=== PATIENT | female | born 1975 | race Caucasian/White ===

== ENCOUNTER 2017-06-15 17:50 | Emergency (ER) | payer MEDICAID ==
[2017-06-15] MEDS ORDERED: Sodium Chloride 0.9% 1,000 ML IV SCH (18:15)
[2017-06-15] MEDS ORDERED: Ketorolac 30 MG/ML SDV IVPUSH ONE (18:16)
[2017-06-15] MEDS ORDERED: diphenhydrAMINE 50 MG/ML SDV IVPUSH ONE (18:16)
[2017-06-15] MEDS ORDERED: Metoclopramide 10 MG/2 ML SDV IVPUSH ONE (18:16)
[2017-06-15 19:39] VITALS: BP 166/91
--- NOTE | 2017-06-17 16:37 | ER ---
DATE SEEN: 06/15/2017 TIME SEEN: The patient was seen at 1815 hours and dismissed at 1920 hours. HISTORY OF PRESENT ILLNESS: This 41-year-old 2, para 2, woman comes in with history of onset of 10/10 headache, onset this morning when she was in bed, associated with mild photophobia without scintillating scotoma or without fortification syndrome - lines in front of her eyes or phonophobia. She has mild photophobia. She has no paresis or weakness. Has some nausea. Has not vomited. Denies fever. Denies neck stiffness. Denies head trauma or exposure to allergies or seasonal allergies. She gets a bad headache 2 or 3 times a year and otherwise infrequent headaches. No fever associated with it. No seasonal allergies. She has no cough. She is a nonsmoker. She has chronic low back pain. She had codeine. She had nausea with the codeine. PAST MEDICAL HISTORY: Previous hysterectomy for fibroids and endometriosis. Last menstrual period prior to surgery was approximately a year ago. The patient is overweight. Her weight is 92.98 kg. BMI is 35.2 kg/m2. MEDICATIONS: 1. Xanax. 2. Lexapro. 3. Acetaminophen with codeine. 4. Losartan and hydrochlorothiazide. PROBLEMS: No diabetes. No heart disease. She has depression, anxiety, and hypertension. SOCIAL HISTORY: She is a nonsmoker. Drinks coffee and drinks alcohol socially. REVIEW OF SYSTEMS: Otherwise negative. PHYSICAL EXAMINATION: VITAL SIGNS: Blood pressure 142/81, respirations 18, oxygen saturation 98%, pulse 72, and temperature is 36.2 degrees centigrade. GENERAL: The patient is an extremist. She has extensive headache, has the room darkened. Very marked photophobia and her eyes are closed. HEENT: Hearing intact. Pharynx without abnormality. Gag in place. Teeth in good repair. No sinus pressure or discomfort. NECK: No neck stiffness. No cervical adenopathy, thyromegaly, or mass in neck. No erythema of the posterior pharynx. LUNGS: Clear to auscultation without rales, rhonchi, or wheezes. HEART: S1 and S2. No irregular rate or rhythm. ABDOMEN: Soft. No guarding. No abdominal discomfort, and she has increased abdominal girth. No CVA percussion tenderness. EXTREMITIES: Without tenderness. Muscles nontender. Deep tendon reflexes normoactive in upper and lower extremities. NEUROLOGIC: Cranial nerves 2 through 12 intact. No pronator drift. No dysmetria. No asymmetry of muscle strength. No ataxia. Romberg is negative. No past pointing. PLAN: Treat with Reglan 10 mg IV, Toradol 30 mg IV, Benadryl 50 mg IV, orphenadrine 60 mg IV, and 1000 mL normal saline. The patient's headache went down to 3 before dismissal and she was feeling better. She opens her eyes and is talking and is feeling better. Headache and nausea relented before dismissal. ASSESSMENT: Migraine headache with photophobia. PLAN: Dismissed with Reglan 10 mg, ibuprofen 600 mg, Tylenol 1000 mg, and Benadryl 50 mg; to take all stat with onset of headache and every 6 hours. She has chronic low back pain and low back pain problems. She will get Robaxin 750 mg q.i.d. p.r.n. muscle spasms 60 tablets ordered. Follow up with her doctor in a week or earlier if worse. DIAGNOSIS: Migraine headache. /[id number] ZAK/MIRIAM
== END 2017-06-15 19:39 | disposition home or self-care (01) ==
LOC: FB.ED 17:50
DX: G43.909 Migraine, unspecified, not intractable, without status migrainosus (principal); H53.149 Visual discomfort, unspecified; Z90.710 Acquired absence of both cervix and uterus
CPT/HCPCS: 96361; 96374; 96375; 99283; J1200; J1885; J2360; J2765; J7040